=== PATIENT | female | born 1955 | race Two or more races ===

== ENCOUNTER 2025-03-26 08:09 | Inpatient (IN) | payer MEDICARE, SELFPAY ==
[2025-03-22 21:53] VITALS: BP 121/64
[2025-03-22 22:47] VITALS: BMI 22.8
[2025-03-22 23:00] VITALS: BP 123/69
[2025-03-22 23:12] LABS: Hematocrit 32.1 % (37.0-47.0); Hemoglobin 10.7 g/dL (12.0-16.0); Mean Corp Hgb Conc. 33.3 g/dL (33.0-37.0); Mean Corpuscular Volume 77.0 fL (81.0-99.0); Nucleated Red Blood Cells % 0 %; Platelet Count 170 10^3/uL (130-400); Red Cell Dist. Width 14.3 % (11.5-14.5)
[2025-03-22 23:25] LABS: ALT (SGPT) 13 U/L (0-35); AST (SGOT) 35 U/L (14-36); Albumin 4.1 g/dl (3.5-5.0); Alkaline Phosphatase 103 U/L (38-126); Blood Urea Nitrogen 15 mg/dl (7-17); Calcium 8.6 mg/dl (8.4-10.2); Carbon Dioxide 25 mmol/L (22-30); Chloride 93 mmol/L (98-107); Estimated Creatinine Clearance 64 ml/min; Glucose 123 mg/dl (70-99); Potassium 4.1 mmol/L (3.5-5.1); Sodium 123 mmol/L (135-145); Total Protein 7.6 g/dl (6.3-8.2); eGFR > 60.00
[2025-03-23] VITALS (11 sets, daily range): BP systolic 120–166; BP diastolic 52–89; BMI 25.2
--- NOTE | 2025-03-23 00:01 | ED.GENMED ---
History of Present Illness
General
Chief Complaint: Abdominal Pain
Source: patient and family
Exam Limitations: none
Time Seen by Provider: 03/22/25 23:42
Nursing documentation reviewed up to this point in time: agreed with
History of Present Illness
History of Present Illness:
69-year-old female history of metastatic cholangiocarcinoma followed [facility] had been on various oral immunotherapies-presents with abdominal pain, onset a few days ago mid abdomen into her back and shoulder nausea without
vomiting no fever or chills,
Week or so ago she saw her medical oncologist Dr. Medellin, had a CAT scan that showed no new lesions per her son who is physician but some progression in size of the lesions, scheduled to start IV chemotherapy next week
Tobacco no alcohol, no prior abdominal surgeries
Apparently she developed type 1 diabetes as a side effect of one of her immunotherapies, additionally patient may require steroids when she gets IV contrast due to nausea afterward
Phy Exam
Physical Exam
Physical Exam:
Physical Exam
General: 69-year-old female mild distress not
Neck: No jaundice
Heart: s1/s2 regular rate and rhythm, no murmur. equal radial pulses.
Lungs: no acute respiratory distress. clear bilaterally
Abdomen: Tender in the epigastric
Neuro: alert and oriented. no focal neurological deficits
Skin: no rash
Psychiatric: well kept. interactive and cooperative
Extremities: no edema
Course
Orders/Labs/Results
Orders:
Orders
03/22/25 23:01
Complete Blood Count/With Diff Urgent
Comprehensive Metabolic Panel Urgent
Lipase Urgent
Comment: ADD ON
03/22/25 23:43
Add On- LAB Urgent
Tests Added?: lipase
03/22/25 23:53
Troponin I Urgent
HYDROmorphone [Dilaudid] 0.5 mg IV NOW STA
Ondansetron Injectable [Zofran] 4 mg IV NOW STA
Pantoprazole [Protonix IV] 40 mg IV NOW STA
03/22/25 23:55
Dexamethasone Sod Phosphate [Decadron] 10 mg IV NOW STA
03/23/25 00:03
CT Abd/pelvis W Iv Cont Urgent
Reason For Exam: pain cholangriocarcionoma
03/23/25 00:18
Diphenhydramine [Benadryl] 25 mg IV NOW STA
03/23/25 00:35
Electrocardiogram (*1) Urgent
Reason for Study: Chest Pain
EKG- Treatment ONCE
Abnormal Lab Results
03/22/25
23:01
WBC 14.4 H 10^3/uL
(4.8-10.8)
RBC 4.17 L 10^6/uL
(4.20-5.40)
Hgb 10.7 L g/dL
(12.0-16.0)
Hct 32.1 L %
(37.0-47.0)
MCV 77.0 L fL
(81.0-99.0)
MCH 25.7 L pg
(27.0-31.0)
Abs Immat Gran (auto) 0.1 H 10^3/uL
(0-0.05)
Absolute Neuts (auto) 11.7 H 10^3/uL
(1.4-6.5)
Absolute Monos (auto) 1.2 H 10^3/uL
(0.1-0.6)
Immature Gran % 0.6 H %
(0-0.5)
Neutrophils % 81.3 H %
(42.2-75.2)
Lymphocytes % 8.7 L %
(20.5-51.1)
Sodium 123 L mmol/L
(135-145)
Chloride 93 L mmol/L
(98-107)
Glucose 123 H mg/dl
(70-99)
Lipase 21 L U/L
(23-300)
03/22/25 23:01
03/22/25 23:01
Vital Signs
Initial and Last Documented VS:
Initial Vital Signs
Temp Pulse Resp BP Pulse Ox
97.7 F 78 18 121/64 100
03/22/25 21:53 03/22/25 21:53 03/22/25 21:53 03/22/25 21:53 03/22/25 21:53
Last Documented Vital Signs
Temp Pulse Resp BP Pulse Ox
97.7 F 78 18 152/71 99
03/22/25 21:53 03/22/25 21:53 03/22/25 21:53 03/23/25 02:27 03/23/25 02:45
*Radiology
Radiology exam reviewed: radiology read reviewed
*Pulse Oximetry
SaO2: 100
Oxygen Mode of Delivery: Room air
Patient hypoxic: no
*EKG
Interpreted by ED Provider?: Yes
Interpretation: normal
Comparison EKG: no comparison EKG present
Heart Rate: 78
Rate: normal
Rhythm: sinus
Ischemia: non-specific ST changes
*[place] Interpretation
Rate: normal
Interpretation: normal
Heart Rate: 78
Rhythm: sinus
*Critical Care Note
Total Time (30-74mins, 75-104mins- exclusive of procedures): Not Applicable
Update Note
Update Note:
Update CT reviewed with the vision radiology, sounds like what was described to me, although no old images here to review, call placed to oncology at [facility], will update family
Discussed with patient and son who is a physician they prefer to stay here at [place] as opposed to going home as opposed to being transferred reviewed with oncology at [facility] they are in agreement
ED Attending Note
-
Portions of this chart may have been created with voice recognition software.� Occasional wrong word or��sound alike� substitutions may have occurred due to the inherent limitations of voice recognition software.
Discharge Plan
Departure
Patient Disposition: Admit
Date of Disposition: 03/23/25
Time of Disposition: 03:10
Admit to: Med/Surg
Presentation/result/management discussed w/ accepting MD/DO: Hospitalist
Patient with high blood pressure during this ER visit?: No
Condition: Fair
Discharge Problem:
Intractable pain, Cholangiocarcinoma
Referrals:
Ce Waddell DO [Family Provider, Family Practice]
Interventions
Interventions:
*Risk Screen - Suicide Last Done: 03/22/25 21:53
*General Assessment Last Done: 03/22/25 22:00
*Neglect/Abuse Screening Last Done: 03/22/25 21:53
*ED- Fall Risk Assessment Last Done: 03/22/25 22:00
*ED COVID-19 Vaccine History Last Done: 03/22/25 22:00
*ED Influenza Vaccine History Last Done: 03/22/25 22:00
Discharge Date and Time
Print Language: DIVEHI
[2025-03-23] MEDS: DILAUDID 0.5 MG IV ×4 (00:04→19:43)
[2025-03-23] MEDS: ZOFRAN 4 MG IV (00:05)
[2025-03-23] MEDS: PROTONIX IV 40 MG IV ×3 (00:09→19:34)
[2025-03-23] MEDS: DECADRON 10 MG IV (00:10)
[2025-03-23] MEDS: BENADRYL 25 MG IV (00:22)
[2025-03-23 00:28] LABS: Lipase 21 U/L (23-300)
[2025-03-23 00:52] LABS: Troponin I < 0.012 ng/ml
--- NOTE | 2025-03-23 04:48 | HPS.HSE ---
Family Physician
-
Family Physician: Ce Waddell DO
Chief Complaint
-
Abd Pain, Nausea
History of Present Illness
Patient is a 69y F with PMH significant for metastatic cholangiocarcinoma who presents to ED complaining of abdominal pain and nausea. History obtained from patient and family at the bedside. Patient has history of metastatic
cholangiocarcinaom currently followed at [facility]. She was most recently on futibatinib (last dose Monday) with plans to switch back to intravenous chemotherapy later this week.
Patient states that she has been having increased pain in both shoulders, neck and lower back for the past week or so. She denies any injury or change in physical activity.
Patient was advised to take Motrin and has been taiking 400mg BID for about one week.
In the past few days, she developed epigastric abdominal pain and nausea. This has steadily increased. Patient denies any episodes of emesis. No black or bloody stools.
Patient is on omeprazole daily. She added OTC antacids and Maalox with some improvement in her symptoms.
This evening the discomfort seemed more severe and patient presented to the ED for further evaluation.
Medical History
Past Medical History
Past Medical History: Reports Other
Additional Past Medical History:
Metastatic Cholangiocarcinoma
Hypothyroidism
DM-I
Past Surgical History: Reports Other
Additional Past Surgical History:
Cataracts
Social History
Tobacco: Non-smoker
Alcohol: None
Drug: None
Family History
Family History: Not pertinent
Allergies / Home Medications
Allergies reflects when Allergies were last updated in [facility].
Home Medications with original date entered in [facility]
Allergy/Medication List:
Allergies
Allergy/AdvReac Type Severity Reaction Status Date / Time
garbanzo gonsalez Allergy Hives Verified 03/22/25 22:52
Iodinated Contrast Media Allergy Unknown Verified 03/23/25 00:13
Home Medications
insulin aspart U-100 100 unit/mL (3 mL) subcutaneous pen 12 unit SC AC 03/23/25
insulin glargine 100 unit/mL (3 mL) subcutaneous pen (Lantus Solostar U-100 Insulin) 18 unit SC HS 03/23/25
levothyroxine 25 mcg tablet 25 mcg PO DAILY 03/23/25
omeprazole 40 mg capsule,delayed release 40 mg PO DAILY 03/23/25
Review of Systems
-
History Source: Patient and Family
A 12 point ROS was completed and negative except as noted: Yes
Constitutional: Reports Fatigue; Denies Fever or Chills
EENT: Denies Sore Throat
Respiratory: Denies Cough, Hemoptysis or Trouble Breathing
Cardiac: Reports Chest Pain; Denies Palpitations
Abdomen/GI: Reports Abdominal Pain and Nausea; Denies Vomiting, Diarrhea, Constipated, Bloody Stools or Black Stools
: Denies Dysuria, Frequency or Flank Pain
Musculoskeletal: Reports Muscle Pain (shoulders, neck, low back.)
Neurological: Denies Dizzy or Headache
Psych: Denies Depression or Anxiety
Physical Exam
Vital Signs
Vital Signs
Temp Pulse Resp BP Pulse Ox
97.7 F 77 16 130/70 98
03/22/25 21:53 03/23/25 04:42 03/23/25 04:42 03/23/25 04:00 03/23/25 04:30
Physical Exam
General: Other (69y F in no acute distress.)
HEENT: Other (Dry MM. Neck supple.)
Respiratory: Clear; No Wheezes, Rales or Rhonchi
Cardiac: S1/S2 and Regular Rhythm; No Murmur
GI: Soft, Non Distended, Normal Bowel Sounds and Other (Mild tenderness in RUQ / epigastric region. No rebound / guarding.)
Musculoskeletal: No Clubbing, No Cyanosis and No Edema
Neuro: AO x 3
Laboratory Results
-
03/22/25 23:
03/22/25 23:
Laboratory Results
Total Bilirubin 0.5 mg/dl (0.2-1.3) 03/22/25 23:
AST 35 U/L (14-36) 03/22/25 23:
ALT 13 U/L (0-35) 03/22/25 23:
Alkaline Phosphatase 103 U/L (38-126) 03/22/25 23:
Troponin I < 0.012 ng/ml 03/23/25 00:15
Lipase 21 U/L (23-300) L 03/22/25 23:
Impression/Plan
-
A/P: Patient is a 69y F with PMH significant for metastatic cholangiocarcinoma who presents to ED complaining of abdominal pain and nausea.
Gastritis / Esophagitis
- Observe overnight for further evaluation and treatment.
- Epigastric / GI symptoms started after NSAID use for about one week.
- Continue acid suppression and increase to BID.
- Supportive care with antiemetics, pain control, etc.
- Follow for clinical improvement.
Back Pain / Shoulder Pain
- ? Etiology of recent / diffuse pains.
- ? related to malignancy / recently discontinued oral agent / etc.
- Tylenol ATC +/- tramadol as needed for pain for now.
- Avoid NSAIDs.
- Follow for any new / worsening symptoms.
Metastatic Cholangiocarcinoma
- CT scan done in the ED this evening with similar reading to recent CT done at [facility] (03/14).
- Large L liver lesion including invasion into L hepatic vein and IVC - no change from recent prior.
- Otherwise few R liver metastases and innumerable pulmonary metastases.
- Plan is to begin systemic chemotherapy later this week at [facility].
Anemia of Chronic Disease
- Stable. Hgb is at / near known baseline. Follow for any changes.
DM-I
- Stable. Continue basal : bolus insulin regimen.
- Follow glucose and cover with SSI as needed.
- A1C on 03/14 was 7.6%.
Hypothyroidism
- Stable. Continue T4 replacement.
DVT Prophylaxis: SCDs
Code Status: Full
[2025-03-23 06:14] LABS: Hematocrit 35.6 % (37.0-47.0); Hemoglobin 11.9 g/dL (12.0-16.0); Mean Corp Hgb Conc. 33.4 g/dL (33.0-37.0); Mean Corpuscular Volume 78.6 fL (81.0-99.0); Platelet Count 218 10^3/uL (130-400); Red Cell Dist. Width 14.3 % (11.5-14.5)
--- NOTE | 2025-03-23 06:14 | PTCARENOTE ---
05:40 pt rec'vd from ER, son at the bedside. Pt c/o tenderness R LAQ down through lower pelvic area, declining pain medication. VS stable, pt and son oriented to unit and care plan reviewed.
[2025-03-23 06:30] LABS: ALT (SGPT) 17 U/L (0-35); AST (SGOT) 61 U/L (14-36); Albumin 4.3 g/dl (3.5-5.0); Alkaline Phosphatase 120 U/L (38-126); Blood Urea Nitrogen 14 mg/dl (7-17); Calcium 8.8 mg/dl (8.4-10.2); Carbon Dioxide 25 mmol/L (22-30); Chloride 95 mmol/L (98-107); Estimated Creatinine Clearance 55 ml/min; Glucose 180 mg/dl (70-99); Potassium 5.0 mmol/L (3.5-5.1); Sodium 126 mmol/L (135-145); Total Protein 8.1 g/dl (6.3-8.2); eGFR > 60.00
[2025-03-23] MEDS: SYNTHROID 25 MCG PO (06:32)
[2025-03-23 07:54] LABS: Glucose - Point of Care 267 mg/dl (70-99)
[2025-03-23] MEDS: COMPAZINE 5 MG IV ×2 (08:17→14:17)
[2025-03-23] MEDS: NSS (PRESERVATIVE FREE) 10 ML IV ×2 (08:31→19:34)
[2025-03-23] MEDS: NOVOLOG FLEXPEN-MODERATE RESISTANCE 5 UNITS SC ×2 (09:45→17:16)
[2025-03-23] MEDS: TYLENOL PO (09:45)
[2025-03-23] MEDS: NSS 1000 IV (09:46)
--- NOTE | 2025-03-23 11:21 | CM ---
Met with patient and her son at bedside
LAZARO form explained; form signed @ [id number]
Pharmacy verified: [facility] @ [address]
Lives w/ ; multilevel home; half bath 1st floor; 2nd floor bed and bath w/shower stall
PLOF: was independent with ambulation, stairs, and ADL; not currently driving; retired
DME: Dexcom continuous glucose monitor
NO SNF or Home Health utilization history
will transport home
Plan: anticipate discharge to home when stable; case management will monitor for needs
--- NOTE | 2025-03-23 11:24 | CON.GI ---
Consultation
-
Date/Time Consultation Requested: 03/23/25 11:17am
Date/Time Consultation Performed: 03/23/25 11:24am
Requesting Provider: Wilfred Kline
Performing Provider: Joseph Culp
Reason for Consultation: Abd pain, hx metastatic cholangiocarcinoma
Medical History
Chief Complaint / HPI
Chief Complaint: Abd pain, hx metastatic cholangiocarcinoma
History of Present Illness:
69yo female presents with abd pain. She has been having back and neck pain for last 10 days. She started taking ibuprofen 400mg BID. This she began with epigastric pain worse after eating. Her son who is MD told her to increase
omeprazole to BID and try mylanta. She continued to have pain and became worse, and also lower in her abdomen, so he directed her to ER. She also had loose/watery stool yesterday, nonbloody. She has hx metastatic cholangiocarcinoma dx'd 4 years
ago. Initially treated with gemcitabine/cisplatinin which controlled disease in liver but she had progression in her LN so she was switched to various clinical trials using immunotherapy, FGFR inhibitors. She was on steroids for pneumonitis during
immunorx but not in the last year. She is currently on futibatinib (FGFR inhibitor) for the last year but recent CT 03/14 at [facility] showed progression in her liver lesion so she is going to be switched back to gemcitabine cisplatinin. She received
prednisone 40mg for her recent CT due to reaction to the dye. She has been on omeprazole daily for the last year while on her various treatments to protect against GI side effects. No prior EGD. She was born in [place].
Past Medical History
Past Medical History: Hypothyroidism, IDDM and Other (Metastatic cholangiocarcinoma)
Past Surgical History: Other (cataract)
Social History
Tobacco: Non-Smoker
Alcohol: None
Family History
Family History: Reviewed & Not Pertinent
Allergies / Home Medications
Allergy/AdvReac Type Severity Reaction Status Date / Time
garbanzo gonsalez Allergy Hives Verified 03/22/25 22:52
Iodinated Contrast Media Allergy Unknown Verified 03/23/25 00:13
�Medication �Instructions �Recorded
insulin aspart U-100 100 unit/mL 12 unit SC AC 03/23/25
(3 mL) subcutaneous pen
insulin glargine 100 unit/mL (3 18 unit SC HS 03/23/25
mL) subcutaneous pen (Lantus
Solostar U-100 Insulin)
levothyroxine 25 mcg tablet 25 mcg PO DAILY 03/23/25
omeprazole 40 mg capsule,delayed 40 mg PO DAILY 03/23/25
release
Review of Systems
-
All other systems: A 12 pt ROS was Negative except as stated above in HPI
Vital Signs
Temp Pulse Resp BP Pulse Ox
98.1 F 74 16 136/63 99
03/23/25 07:00 03/23/25 07:00 03/23/25 07:00 03/23/25 07:00 03/23/25 07:00
Physical Exam
Exam
General: No Apparent Distress
HEENT: Normocephalic and Atraumatic
Respiratory: Non Labored Respirations
GI: Soft, Non Tender and Non Distended
Skin: Warm and Dry
Results
WBC 13.9 10^3/uL (4.8-10.8) H 03/23/25 05:50
Hgb 11.9 g/dL (12.0-16.0) L 03/23/25 05:50
Hct 35.6 % (37.0-47.0) L 03/23/25 05:50
MCV 78.6 fL (81.0-99.0) L 03/23/25 05:50
Plt Count 218 10^3/uL (130-400) D 03/23/25 05:50
Absolute Neuts (auto) 11.7 10^3/uL (1.4-6.5) H 03/22/25 23:01
Sodium 126 mmol/L (135-145) L 03/23/25 05:50
Potassium 5.0 mmol/L (3.5-5.1) 03/23/25 05:50
Chloride 95 mmol/L (98-107) L 03/23/25 05:50
Carbon Dioxide 25 mmol/L (22-30) 03/23/25 05:50
BUN 14 mg/dl (7-17) 03/23/25 05:50
Creatinine 0.7 mg/dL (0.6-1.0) 03/23/25 05:50
Calcium 8.8 mg/dl (8.4-10.2) 03/23/25 05:50
Total Bilirubin 0.6 mg/dl (0.2-1.3) 03/23/25 05:50
AST 61 U/L (14-36) H 03/23/25 05:50
ALT 17 U/L (0-35) 03/23/25 05:50
Alkaline Phosphatase 120 U/L (38-126) 03/23/25 05:50
Lipase 21 U/L (23-300) L 03/22/25 23:01
Diagnostic Image Results:
Prior GI Procedures:
EGD:
Colonoscopy:
Assessment / Plan
-
Summary: 69yo female hx metastatic cholangioCA dx'd 4 yrs ago presents with epigastric pain for last 4 days migrating to lower abd pain and loose stools day prior to admission. She was taking ibuprofen 400mg BID for back pain for last 10 days.
Currently on futibatinib for cholangiocA but recent CT 03/14 at [facility] showed progression of liver involvement so she is being switched back to gemcitabine/cisplatnin. She rec'd prednisone 40mg for the CT scan due to reaction to IV dye. CT this
admission prelim shows no change from recent CT. LFTs, lipase normal. She takes prilosec daily for last year. Her son (who is MD) asked her to increase to BID and try mylanta
Impression:
Epig pain/lower abd pain
Recent NSAIDs and 1 dose prednisone 40mg
Metastatic cholangiocarcinoma on futibatinib, planning on switching to gemcitabine/cisplatnin. Oncologist Dr Medellin at [facility]
Recommendations:
Continue IV protonix BID for probable NSAID induced ulcer/gastritis in addition to single dose steroids
Add carafate
Check stool c diff given recent loose stool
Await final read on CT
If no improvement, consider EGD next
-
-
Thank you for consultation and allowing me to participate in the patient's care. Please call the associate application developer GI physician during the after hours with any questions or concerns.
[2025-03-23 11:56] LABS: Glucose - Point of Care 357 mg/dl (70-99)
[2025-03-23] MEDS: MIRALAX 17 GRAMS PO (12:01)
[2025-03-23] MEDS: COLACE 100 MG PO ×2 (12:01→19:34)
[2025-03-23] MEDS: NOVOLOG FLEXPEN 10 UNITS SC ×2 (12:01→17:16)
[2025-03-23] MEDS: NOVOLOG FLEXPEN-MODERATE RESISTANCE 9 UNITS SC (12:02)
--- NOTE | 2025-03-23 12:07 | W.PN.UPDATE ---
Update Note
Progress Note Update
spoke with and son at bedside.
provide an update to the best of my knowledge and answered all questions to the best of my knowledge
will consult gi
await for official ct read
start miralax and colace
previous reaction to senna
personally reviewed ct
-bladder distended and full of urine
-stool through out the colon
-bowel reg started
chucky - Don Phipps MD, [employer]
[phone]
[2025-03-23] MEDS: ULTRAM 25 MG PO (15:05)
[2025-03-23] MEDS: TYLENOL 975 MG PO ×2 (15:05→22:23)
[2025-03-23 16:37] LABS: Glucose - Point of Care 264 mg/dl (70-99)
[2025-03-23] MEDS: CARAFATE 1 GRAM PO ×2 (17:15→22:23)
[2025-03-23 21:50] LABS: Glucose - Point of Care 186 mg/dl (70-99)
[2025-03-23] MEDS: SENOKOT 17.2 MG PO (22:23)
[2025-03-23] MEDS: LANTUS 0.18 UNITS SC (22:24)
[2025-03-24] MEDS: NSS IV (00:11)
[2025-03-24] MEDS: DILAUDID 0.5 MG IV ×2 (02:05→20:54)
[2025-03-24] MEDS: NSS 1000 IV ×2 (02:40→18:33)
[2025-03-24] MEDS: SYNTHROID 25 MCG PO (05:56)
[2025-03-24 06:00] VITALS: BMI 25.2
[2025-03-24 06:32] LABS: Hematocrit 32.9 % (37.0-47.0); Hemoglobin 10.8 g/dL (12.0-16.0); Mean Corp Hgb Conc. 32.8 g/dL (33.0-37.0); Mean Corpuscular Volume 80.4 fL (81.0-99.0); Platelet Count 185 10^3/uL (130-400); Red Cell Dist. Width 14.6 % (11.5-14.5)
[2025-03-24 07:00] LABS: Blood Urea Nitrogen 16 mg/dl (7-17); Calcium 8.0 mg/dl (8.4-10.2); Carbon Dioxide 26 mmol/L (22-30); Chloride 94 mmol/L (98-107); Estimated Creatinine Clearance 55 ml/min; Glucose 257 mg/dl (70-99); Potassium 4.8 mmol/L (3.5-5.1); Sodium 125 mmol/L (135-145); eGFR > 60.00
--- NOTE | 2025-03-24 08:05 | W.PN.GI.CBS2 ---
Addendum entered and electronically signed by Jewel Fishman MD 03/24/25 15:55:
I saw and examined the patient.
The VISUAL SUPERVISOR or PA's note was reviewed and I agree with the note.
Comment: 69-year-old female past medical history of metastatic cholangiocarcinoma presenting with back pain, neck pain, abdominal pain. Worsening pain since this AM when Mireya initially saw her. She was taking ibuprofen. Most likely I suspect this
is related to her metastatic cancer causing her pain but if her pain persist with no clear etiology, may consider upper endoscopy for further evaluation for an ulcer in setting of NSAIDS will make NPO after midnight . There was questionable of
loose stool when she first was admitted but when I discussed with her she seems to have more constipation. She has 1 loose stool but this is in the setting of being on MiraLAX and Colace. CT scan also showed possible ileus which could be
explanation for her pain. I discussed with hospitalist. He will continue to manage her pain regimen.
Original Note:
Today's Communication / Plan
-
Etiology of pain related to recent NSAID/steroid use, constipation, possible ileus, metastatic process vs other
Pt feeling better from abdominal pain and diarrhea standpoint but still with some shoulder and back pain
cont diet 1800 ADA diet -- may bring food from home
cont PPI BID and carafate QID
cont bowel regiment with Miralax daily, colace BID, and senna HS
c-diff pending to be stent
CT as noted
hbg stable at 10.8
cont pain management per hospitalist team
If recurrent pain consider EGD next
cont to correct Na with possible ileus noted on imaging
family updated at bedside
Assessment / Plan
-
Summary: 69yo female hx metastatic cholangioCA dx'd 4 yrs ago presents with epigastric pain for last 4 days migrating to lower abd pain and loose stools day prior to admission. She was taking ibuprofen 400mg BID for back pain for last 10 days.
Currently on futibatinib for cholangiocA but recent CT 03/14 at [facility] showed progression of liver involvement so she is being switched back to gemcitabine/cisplatnin. She rec'd prednisone 40mg for the CT scan due to reaction to IV dye. CT this
admission prelim shows no change from recent CT. LFTs, lipase normal. She takes prilosec daily for last year. Her son (who is MD) asked her to increase to BID and try mylanta
03/23/25 CT Abd/pelvis W Iv Cont
1. LARGE 4.5 cm INTRAHEPATIC BILE DUCT CANCER in the left lobe of the liver invading the inferior vena cava and occluding the left portal vein.
2. Severe atrophy of the left lobe of the liver with intrahepatic bile duct obstruction.
3. Small metastases in the right lobe of the liver.
4. SEVERE METASTATIC LYMPHADENOPATHY in the GASTROHEPATIC LIGAMENT.
5. SEVERE METASTATIC RETROPERITONEAL LYMPHADENOPATHY.
6. MULTIFOCAL PULMONARY METASTATIC DISEASE.
7. Moderate colonic distention most suggestive of an adynamic ileus.
8. Minimal ascites.
Impression:
Epig pain
loose stools with hx constipation
lower abd pain
back/neck/shoulder pain
Recent NSAIDs and 1 dose prednisone 40mg
possible ileus per CT
leukocytosis
hyponatemia
Metastatic cholangiocarcinoma on futibatinib, planning on switching to gemcitabine/cisplatnin. Oncologist Dr Medellin at [facility]
Recommendations:
Etiology of pain related to recent NSAID/steroids use, constipation, possible ileus, metastatic process vs other
Pt feeling better from abdominal pain and diarrhea standpoint but still with some shoulder and back pain
cont diet 1800 ADA diet -- may bring food from home
cont PPI BID and carafate QID
cont bowel regiment with Miralax daily, colace BID, and senna HS
c-diff pending to be stent
CT as noted
hbg stable 10.8
cont pain management per hospitalist team
If recurrent pain consider EGD next
cont to correct Na with possible ileus noted on imaging
family updated at bedside
Subjective
Subjective
Date of Service: March 24, 2025
pt feeling better from GI standpoint with abdominal pain and loose stools but still with some back pain and left shoulder pain not controlled with tylenol and Tramadol
Objective
Data Reviewed
Laboratory Data:
Laboratory Results
03/24/25 06:22
03/24/25 06:22
Laboratory Results
Total Bilirubin 0.6 mg/dl (0.2-1.3) 03/23/25 05:50
AST 61 U/L (14-36) H 03/23/25 05:50
ALT 17 U/L (0-35) 03/23/25 05:50
Alkaline Phosphatase 120 U/L (38-126) 03/23/25 05:50
Lipase 21 U/L (23-300) L 03/22/25 23:01
Vital Signs and I&O:
Vital Signs
Temp Pulse Resp BP Pulse Ox
97.7 F 72 16 120/52 95
03/23/25 23:24 03/23/25 23:24 03/23/25 23:24 03/23/25 23:24 03/23/25 23:24
I&O
03/23/25 03/24/25 03/25/25
06:59 06:59 06:59
Intake Total 1680 / 1680
Output Total 225 / 225
Balance 1455 / 1455
Physical Exam
Physical Exam
HEENT: Anicteric
Cardiology: Normal Sinus Rhythm
Pulmonary: Clear
GI: Soft, Non Distended and Non Tender
Neuro: Non Focal
[2025-03-24 08:10] VITALS: BP 128/64
[2025-03-24 08:11] LABS: Glucose - Point of Care 273 mg/dl (70-99)
[2025-03-24] MEDS: CARAFATE 1 GRAM PO ×4 (08:19→20:48)
[2025-03-24] MEDS: MIRALAX 17 GRAMS PO (08:20)
[2025-03-24] MEDS: PROTONIX IV 40 MG IV ×2 (08:20→20:48)
[2025-03-24] MEDS: COLACE 100 MG PO ×2 (08:20→20:48)
[2025-03-24] MEDS: NOVOLOG FLEXPEN 10 UNITS SC ×3 (08:21→18:31)
[2025-03-24] MEDS: TYLENOL 975 MG PO (08:21)
[2025-03-24] MEDS: NSS (PRESERVATIVE FREE) 10 ML IV ×2 (08:21→20:48)
[2025-03-24] MEDS: NOVOLOG FLEXPEN-MODERATE RESISTANCE 5 UNITS SC (08:22)
[2025-03-24] MEDS: ULTRAM 25 MG PO ×2 (10:02→22:16)
[2025-03-24 11:50] LABS: Glucose - Point of Care 213 mg/dl (70-99)
[2025-03-24] MEDS: NOVOLOG FLEXPEN-MODERATE RESISTANCE 3 UNITS SC ×2 (12:14→18:31)
[2025-03-24] MEDS: PERCOCET 5/325 1 TABLET PO ×2 (12:27→16:55)
--- NOTE | 2025-03-24 12:57 | W.PN.HOSP.TC ---
Today's Communication/Plan
-
Assessment / Plan
Assessment / Plan
NAD
Scleral Anicteric
MMM
No JVD
Right anterior chest wall port noted
CTABL
RRR, S1/S2
Soft, NT, ND, BS+
Warm, Dry
Left pin point tenderness over scapula lateral edge
AAOx3
Abdominal pain resolved
Constipation with adynamic ileus
Hyponatremia
Shoulder pain - left sided, likely MSK
Cholangiocarincoma
Hypothyrosidism
Type1 DM
PPI IV BID
Miralax, colace, senna
Repeat bmp in the AM
IVF with NS at a rate of 70
Left shoulder xray
Analgesics
Start percocet
Conitnue levothyroxine
SSI
Long acting insuline
Accuchecks
[id number]
CCDiet
Anticipated Discharge: 24 - 48 hours
Subjective/Interval History
-
Date of Service: March 24, 2025
seen and examined. no new complaints. no acute ovenrigh events
abd pain improved
shoulder pain left sided
Objective Data
-
Labs:
Laboratory Results
03/24/25
06:22
WBC 14.7 H
Hgb 10.8 L
Hct 32.9 L
Plt Count 185
Sodium 125 L
Potassium 4.8
Chloride 94 L
Carbon Dioxide 26
BUN 16
Creatinine 0.7
Glucose 257 H
Calcium 8.0 L
Vital Signs:
Vital Signs
Temp Pulse Resp BP Pulse Ox
98.0 F 82 16 128/64 98
03/24/25 08:10 03/24/25 08:10 03/24/25 08:10 03/24/25 08:10 03/24/25 08:10
I&O
03/23/25 03/24/25 03/25/25
06:59 06:59 06:59
Intake Total 1680 / 1680
Output Total 225 / 225
Balance 1455 / 1455
[2025-03-24] MEDS: NON-FORMULARY ITEM 1 % LEFT EYE ×2 (14:41→20:49)
[2025-03-24 15:12] VITALS: BP 120/59
[2025-03-24] MEDS: TYLENOL PO (16:56)
[2025-03-24 17:39] LABS: Glucose - Point of Care 202 mg/dl (70-99)
[2025-03-24] MEDS: SENOKOT 17.2 MG PO (22:18)
[2025-03-24] MEDS: LANTUS 0.18 UNITS SC (22:20)
[2025-03-24 22:44] LABS: Glucose - Point of Care 197 mg/dl (70-99)
[2025-03-24 23:30] VITALS: BP 140/70
[2025-03-25] MEDS: TYLENOL PO ×2 (00:23→07:57)
[2025-03-25] MEDS: SYNTHROID 25 MCG PO (05:12)
[2025-03-25] MEDS: DILAUDID 0.5 MG IV (05:13)
[2025-03-25 06:00] VITALS: BMI 26.3
[2025-03-25 06:11] LABS: Hematocrit 31.2 % (37.0-47.0); Hemoglobin 10.1 g/dL (12.0-16.0); Mean Corp Hgb Conc. 32.4 g/dL (33.0-37.0); Mean Corpuscular Volume 79.6 fL (81.0-99.0); Platelet Count 183 10^3/uL (130-400); Red Cell Dist. Width 14.8 % (11.5-14.5)
[2025-03-25 06:33] LABS: Blood Urea Nitrogen 12 mg/dl (7-17); Calcium 7.7 mg/dl (8.4-10.2); Carbon Dioxide 23 mmol/L (22-30); Chloride 95 mmol/L (98-107); Estimated Creatinine Clearance 64 ml/min; Glucose 234 mg/dl (70-99); Potassium 4.3 mmol/L (3.5-5.1); Sodium 123 mmol/L (135-145); eGFR > 60.00
--- NOTE | 2025-03-25 07:36 | W.PN.GI.CBS2 ---
Addendum entered and electronically signed by Jewel Fishman MD 03/25/25 15:08:
I saw and examined the patient.
The REMOTE BROADCAST TECHNICIAN or PA's note was reviewed and I agree with the note.
Comment: 69-year-old female with metastatic cholangiocarcinoma presenting with abdominal pain, back pain, constipation. Complaining of ongoing abdominal pain but no longer epigastric but more so lower abdominal pain. Due to her hyponatremia and
the presentation of her abdominal pain, the decision was made to hold off on the upper endoscopy. Less likely this represents an ulcer. She could be constipated which was seen on imaging. I will stop her Carafate as that can be constipating. We
will continue her PPI in case there is any sort of peptic ulcer disease. We will increase her MiraLAX to twice a day. I discussed with hospitalist they will manage her pain and reach out to her oncologist. I discussed with her at bedside.
All questions answered.
Original Note:
Today's Communication / Plan
-
Etiology of pain related to recent NSAID/steroids use, constipation, possible ileus, metastatic process vs other
still with some lower abdominal pain today
Na drop to 123
low Na may lead to ileus noted on imaging but pt continued to tolerate diet
hold EGD today as epigastric pain better and Na drop
ok to resume diet
cont PPI BID and carafate QID
cont bowel regiment with Miralax daily, colace BID, and senna HS
c-diff neg
CT as noted
hbg stable 10.1
cont pain management per hospitalist team -- some transition to PO dosing but needed IV dosing last PM
family updated at bedside
Assessment / Plan
-
Summary: 69yo female hx metastatic cholangioCA dx'd 4 yrs ago presents with epigastric pain for last 4 days migrating to lower abd pain and loose stools day prior to admission. She was taking ibuprofen 400mg BID for back pain for last 10 days.
Currently on futibatinib for cholangiocA but recent CT 03/14 at [facility] showed progression of liver involvement so she is being switched back to gemcitabine/cisplatnin. She rec'd prednisone 40mg for the CT scan due to reaction to IV dye. CT this
admission prelim shows no change from recent CT. LFTs, lipase normal. She takes prilosec daily for last year. Her son (who is MD) asked her to increase to BID and try mylanta
03/23/25 CT Abd/pelvis W Iv Cont
1. LARGE 4.5 cm INTRAHEPATIC BILE DUCT CANCER in the left lobe of the liver invading the inferior vena cava and occluding the left portal vein.
2. Severe atrophy of the left lobe of the liver with intrahepatic bile duct obstruction.
3. Small metastases in the right lobe of the liver.
4. SEVERE METASTATIC LYMPHADENOPATHY in the GASTROHEPATIC LIGAMENT.
5. SEVERE METASTATIC RETROPERITONEAL LYMPHADENOPATHY.
6. MULTIFOCAL PULMONARY METASTATIC DISEASE.
7. Moderate colonic distention most suggestive of an adynamic ileus.
8. Minimal ascites.
Impression:
Epig pain then lower abdominal pain
loose stools with hx constipation
back/neck/shoulder pain
Recent NSAIDs and 1 dose prednisone 40mg
possible ileus per CT
leukocytosis
hyponatremia
Metastatic cholangiocarcinoma on futibatinib, planning on switching to gemcitabine/cisplatnin. Oncologist Dr Medellin at [facility]
Recommendations:
Etiology of pain related to recent NSAID/steroids use, constipation, possible ileus, metastatic process vs other
still with some lower abdominal pain today
Na drop to 123
low Na may lead to ileus noted on imaging but pt continued to tolerate diet
hold EGD today as epigastric pain better and Na drop
ok to resume diet
cont PPI BID and carafate QID
cont bowel regiment with Miralax daily, colace BID, and senna HS
c-diff neg
CT as noted
hbg stable 10.1
cont pain management per hospitalist team -- some transition to PO dosing but needed IV dosing last PM
family updated at bedside
Subjective
Subjective
Date of Service: March 25, 2025
03/24 loose brown stool on diabetic diet, no upper abdominal pain but some lower pain-- she did require breakthough IV pain meds last PM
Objective
Data Reviewed
Laboratory Data:
Laboratory Results
03/25/25 05:32
03/25/25 05:32
Laboratory Results
Total Bilirubin 0.6 mg/dl (0.2-1.3) 03/23/25 05:50
AST 61 U/L (14-36) H 03/23/25 05:50
ALT 17 U/L (0-35) 03/23/25 05:50
Alkaline Phosphatase 120 U/L (38-126) 03/23/25 05:50
Lipase 21 U/L (23-300) L 03/22/25 23:01
Vital Signs and I&O:
Vital Signs
Temp Pulse Resp BP Pulse Ox
98.1 F 76 16 140/70 97
03/24/25 23:30 03/24/25 23:30 03/24/25 23:30 03/24/25 23:30 03/24/25 23:30
I&O
03/24/25 03/25/25 03/26/25
06:59 06:59 06:59
Intake Total 1680 / 1680 1780 / 1780
Output Total 225 / 225 2480 / 2480
Balance 1455 / 1455 -700 / -700
Physical Exam
Physical Exam
HEENT: Anicteric and Moist mucous membranes
Cardiology: Normal Sinus Rhythm
Pulmonary: Clear
GI: Soft, Non Distended and Non Tender
Extremities: No Edema
Neuro: Non Focal
[2025-03-25] MEDS: NON-FORMULARY ITEM 1 % LEFT EYE ×3 (07:54→21:31)
[2025-03-25] MEDS: PROTONIX IV 40 MG IV ×2 (07:56→20:14)
[2025-03-25] MEDS: MIRALAX 17 GRAMS PO (07:56)
[2025-03-25] MEDS: NSS (PRESERVATIVE FREE) 10 ML IV ×2 (07:56→20:14)
[2025-03-25] MEDS: COLACE 100 MG PO ×2 (07:56→20:13)
[2025-03-25 08:00] LABS: Glucose - Point of Care 257 mg/dl (70-99)
[2025-03-25] MEDS: NOVOLOG FLEXPEN-MODERATE RESISTANCE 15 UNITS SC (08:00)
[2025-03-25] MEDS: NOVOLOG FLEXPEN 10 UNITS SC ×3 (08:00→18:16)
[2025-03-25] MEDS: CARAFATE 1 GRAM PO ×2 (08:01→12:35)
[2025-03-25 08:07] VITALS: BP 152/74
[2025-03-25] MEDS: NSS 1000 IV (08:11)
[2025-03-25 09:02] LABS: Cortisol, Random 29.9 ug/dl
[2025-03-25 11:33] LABS: Glucose - Point of Care 206 mg/dl (70-99)
[2025-03-25] MEDS: NOVOLOG FLEXPEN-MODERATE RESISTANCE 13 UNITS SC (12:32)
--- NOTE | 2025-03-25 12:43 | W.PN.HOSP.TC ---
Today's Communication/Plan
-
Assessment / Plan
Assessment / Plan
NAD
Scleral Anicteric
MMM
No JVD
Right anterior chest wall port noted
CTABL
RRR, S1/S2
Soft, NT, ND, BS+
Warm, Dry
Left pin point tenderness over scapula lateral edge
AAOx3
Abdominal pain resolved
Constipation with adynamic ileus
Hyponatremia
Shoulder pain - left sided, likely MSK
Cholangiocarincoma
Hypothyrosidism
Type1 DM
PPI IV BID
Miralax, colace, senna
Repeat bmp in the AM
IVF with NS at a rate of 70
Left shoulder xray
Analgesics
Start percocet
Conitnue levothyroxine
SSI
Long acting insuline
Accuchecks
[id number]
CCDiet
Anticipated Discharge: 24 - 48 hours
Subjective/Interval History
-
Date of Service: March 25, 2025
seen and examined. needed 2doses of iv analgesics.
Objective Data
-
Labs:
Laboratory Results
03/25/25
05:32
WBC 17.3 H
Hgb 10.1 L
Hct 31.2 L
Plt Count 183
Sodium 123 L
Potassium 4.3
Chloride 95 L
Carbon Dioxide 23
BUN 12
Creatinine 0.5 L
Glucose 234 H
Calcium 7.7 L
Vital Signs:
Vital Signs
Temp Pulse Resp BP Pulse Ox
98.9 F 96 17 152/74 99
03/25/25 08:07 03/25/25 08:07 03/25/25 08:07 03/25/25 08:07 03/25/25 08:07
I&O
03/24/25 03/25/25 03/26/25
06:59 06:59 06:59
Intake Total 1680 / 1680 1780 / 1780
Output Total 225 / 225 2480 / 2480
Balance 1455 / 1455 -700 / -700
--- NOTE | 2025-03-25 13:37 | W.CON.NEPH ---
Consultation
-
Date/Time Consultation Requested: 03/25/25 1230
Date/Time Consultation Performed: 03/25/25 1400
Requesting Provider: Wilfred Lee
Performing Provider: Liseth Crisostomo
Reason for Consultation: Hypoantremia
Medical History
-
Chief Complaint: Abd pain , nausea
History of Present Illness:
69y F with PMH significant for metastatic cholangiocarcinoma for 4.5yrs tried multiple clinical trials but stopped due to SEs follows at [facility] who presents to ED complaining of abdominal pain and nausea on 03/23. She was most recently on
futibatinib for cancer (last week Monday) with plans to switch back to intravenous chemotherapy Gemcitabine and cisplatin since progression noted in liver.
Patient states that she has been having increased pain in both shoulders, neck and lower back for 1 week or so. She was advised to take Motrin and took 400mg BID for about one week which subsequently caused epigastric abdominal pain and nausea,
subsequently she changed to tylenol but Pain was worsening hence presented to ER. SHe was seen by GI and currently on PPI BID, There also concern of constipation and possible ileus. Her sodium on admit was at 123 only improved to 126 with IVF
however down to 123 today hence nephrology consulted. GI plans EGD once sodium improves.
Pt reprots still having significant pain. mild nausea. No vomiting. No CP or sob. no dysuria but volume is less. She reports having allergy to multiple high protein foods with rash so her protein source is limited. Her major protein source is peanut
and yogurt. She reports having low sodium 128-132 in last few months, not on any FR.
Past Medical History
Metastatic Cholangiocarcinoma
Hypothyroidism
DM-I
Past Surgical History: Other (cataracts)
Social History
son is program checker
Tobacco: Non-Smoker
Alcohol: None
Drug: None
Employment: Retired
Family History
Family History: Not Pertinent
Allergies / Home Medications
Allergy/AdvReac Type Severity Reaction Status Date / Time
garbanzo gonsalez Allergy Hives Verified 03/22/25 22:52
Iodinated Contrast Media Allergy Unknown Verified 03/23/25 00:13
�Medication �Instructions �Recorded �Confirmed �Type
insulin aspart U-100 100 unit/mL 12 unit SC AC Diabetes 03/23/25 03/23/25 History
(3 mL) subcutaneous pen
insulin glargine 100 unit/mL (3 18 unit SC HS Diabetes 03/23/25 03/23/25 History
mL) subcutaneous pen (Lantus
Solostar U-100 Insulin)
levothyroxine 25 mcg tablet 25 mcg PO DAILY Thyroid 03/23/25 03/23/25 History
omeprazole 40 mg capsule,delayed 40 mg PO DAILY gerd 03/23/25 03/23/25 History
release
prednisolone-moxifloxacin HCl 1 % LEFT EYE TID 03/24/25 03/24/25 History
Review of Systems
-
All other systems: Negative unless noted
Physical Exam
Vital Signs
Vital Signs
Temp Pulse Resp BP Pulse Ox
98.9 F 96 17 152/74 99
03/25/25 08:07 03/25/25 08:07 03/25/25 08:07 03/25/25 08:07 03/25/25 08:07
Lab Results
WBC 17.3 10^3/uL (4.8-10.8) H 03/25/25 05:32
RBC 3.92 10^6/uL (4.20-5.40) L 03/25/25 05:32
Hgb 10.1 g/dL (12.0-16.0) L 03/25/25 05:32
Hct 31.2 % (37.0-47.0) L 03/25/25 05:32
Plt Count 183 10^3/uL (130-400) 03/25/25 05:32
Sodium 123 mmol/L (135-145) L 03/25/25 05:32
Potassium 4.3 mmol/L (3.5-5.1) 03/25/25 05:32
Chloride 95 mmol/L (98-107) L 03/25/25 05:32
Carbon Dioxide 23 mmol/L (22-30) 03/25/25 05:32
BUN 12 mg/dl (7-17) 03/25/25 05:32
Creatinine 0.5 mg/dL (0.6-1.0) L 03/25/25 05:32
eGFR > 60.00 03/25/25 05:32
Glucose 234 mg/dl (70-99) H 03/25/25 05:32
Calcium 7.7 mg/dl (8.4-10.2) L 03/25/25 05:32
Albumin 4.3 g/dl (3.5-5.0) 03/23/25 05:50
Physical Exam
General: Awake, Alert, Oriented, AOx3, No Distress and Nontoxic
HEENT: EOMI, Hearing Normal and No JVD
Respiratory: Clear, Normal Excursion and Nonlabored Respirations
Cardiac: S1/S2 and Regular Rate/Rhythm
Breast: Deferred by me
Abdomen: Soft, Nontender (in gentel palpation) and Nondistended
Musculoskeletal: No Cyanosis and No Edema
Skin: No Rash
Neuro: Nonfocal/Grossly Intact
Psych: Insight/judgement good and Appropriate
Data Reviewed
-
Labs: Labs Reviewed by me, Discussed with Nurse and Discussed with Patient
Assessment/Plan
-
IMP:
Epig pain then lower abdominal pain -started after NSAID use for about one week.
Back Pain / Shoulder Pain
Metastatic Cholangiocarcinoma-plan systemic therapy at [facility] later this week
- CT scan done in the ED this evening with similar reading to recent CT done at [facility] (03/14).
- Large L liver lesion including invasion into L hepatic vein and IVC - no change from recent prior.
- Otherwise few R liver metastases and innumerable pulmonary metastases.
Anemia of Chronic Disease
recent onset DM-I-in last 6m following immunotherapy
Hypothyroidism
Plan:
A/w abd pian following NSAID course
hyponatremia -ADH mediated with pain and malignancy
U osmo 485, U na 79
sodium decreasing despite IVF
as she tolerating diet will dose samsca and stop IVF
cotn FR
BP stable
U PCR 0.8gm/gm of cr possible from DM
maintains normal renal function
pain control
encourage solute intake as much she can do with known high protein food allergy
[2025-03-25] MEDS: PERCOCET 5/325 2 TABLET PO ×2 (14:03→18:20)
[2025-03-25] MEDS: SAMSCA 7.5 MG PO (15:05)
[2025-03-25 15:25] VITALS: BP 114/68
[2025-03-25 16:25] LABS: Glucose - Point of Care 181 mg/dl (70-99)
[2025-03-25] MEDS: NOVOLOG FLEXPEN-MODERATE RESISTANCE 1 UNITS SC (18:16)
[2025-03-25] MEDS: MIRALAX PO ×2 (20:00→20:15)
[2025-03-25] MEDS: SENOKOT 17.2 MG PO (21:31)
[2025-03-25 21:40] LABS: Glucose - Point of Care 85 mg/dl (70-99)
[2025-03-25 23:09] VITALS: BP 102/53
[2025-03-25] MEDS: LANTUS 0.18 UNITS SC (23:09)
--- NOTE | 2025-03-25 23:16 | PTCARENOTE ---
HS BS 86 via fingerstick. Had been >150. Patient states this happens on occasion. She had an HS(own food). Per her meter recheck 146. Patient refused repeat fingerstick. HS Lantus per order.
[2025-03-26 03:23] VITALS: BMI 26.1
[2025-03-26] MEDS: SYNTHROID 25 MCG PO (05:30)
[2025-03-26] MEDS: PERCOCET 5/325 1 TABLET PO (05:43)
[2025-03-26 06:18] LABS: Hematocrit 32.6 % (37.0-47.0); Hemoglobin 10.5 g/dL (12.0-16.0); Mean Corp Hgb Conc. 32.2 g/dL (33.0-37.0); Mean Corpuscular Volume 79.5 fL (81.0-99.0); Platelet Count 202 10^3/uL (130-400); Red Cell Dist. Width 14.9 % (11.5-14.5)
[2025-03-26 06:44] LABS: Blood Urea Nitrogen 9 mg/dl (7-17); Calcium 8.4 mg/dl (8.4-10.2); Carbon Dioxide 25 mmol/L (22-30); Chloride 102 mmol/L (98-107); Estimated Creatinine Clearance 73 ml/min; Glucose 271 mg/dl (70-99); Potassium 4.5 mmol/L (3.5-5.1); Sodium 130 mmol/L (135-145); eGFR > 60.00
[2025-03-26 07:28] LABS: Glucose - Point of Care 276 mg/dl (70-99)
[2025-03-26 07:29] VITALS: BP 127/76
[2025-03-26] MEDS: NOVOLOG FLEXPEN 10 UNITS SC ×2 (07:56→12:02)
[2025-03-26] MEDS: NOVOLOG FLEXPEN-MODERATE RESISTANCE 5 UNITS SC (07:56)
[2025-03-26] MEDS: MIRALAX 17 GRAMS PO (07:59)
[2025-03-26] MEDS: PROTONIX IV 40 MG IV (07:59)
[2025-03-26] MEDS: NON-FORMULARY ITEM 1 % LEFT EYE (07:59)
[2025-03-26] MEDS: NSS (PRESERVATIVE FREE) 10 ML IV (07:59)
[2025-03-26] MEDS: COLACE 100 MG PO (08:00)
[2025-03-26] MEDS: PERCOCET 5/325 2 TABLET PO (09:23)
--- NOTE | 2025-03-26 11:21 | W.PN.NEPH.PH ---
Today's Communication / Plan
-
Lasix and salt
Assessment/Plan
-
IMP:
Epig pain then lower abdominal pain -started after NSAID use for about one week.
Back Pain / Shoulder Pain
Metastatic Cholangiocarcinoma-plan systemic therapy at [facility] later this week
- CT scan done in the ED this evening with similar reading to recent CT done at [facility] (03/14).
- Large L liver lesion including invasion into L hepatic vein and IVC - no change from recent prior.
- Otherwise few R liver metastases and innumerable pulmonary metastases.
Anemia of Chronic Disease
recent onset DM-I-in last 6m following immunotherapy
Hypothyroidism
Plan:
lasix 10mg dialy
NaCl 500mg daily
BMP monday
ok ofor dc from renal standpoint
-
-
Date of Service: March 26, 2025
CC / HPI / ROS
-
Chief Complaint:
Hyponatremia
History of Present Illness:
Sodium up to 130 with Samsca
BP stable
Pain modestly controlled with narcotics
Review of Systems:
No chest pain or shortness of breath
Labs
-
Labs:
WBC 19.9 10^3/uL (4.8-10.8) H 03/26/25 05:50
RBC 4.10 10^6/uL (4.20-5.40) L 03/26/25 05:50
Hgb 10.5 g/dL (12.0-16.0) L 03/26/25 05:50
Hct 32.6 % (37.0-47.0) L 03/26/25 05:50
Plt Count 202 10^3/uL (130-400) 03/26/25 05:50
Sodium 130 mmol/L (135-145) L 03/26/25 05:50
Potassium 4.5 mmol/L (3.5-5.1) 03/26/25 05:50
Chloride 102 mmol/L (98-107) 03/26/25 05:50
Carbon Dioxide 25 mmol/L (22-30) 03/26/25 05:50
BUN 9 mg/dl (7-17) 03/26/25 05:50
Creatinine 0.6 mg/dL (0.6-1.0) 03/26/25 05:50
eGFR > 60.00 03/26/25 05:50
Glucose 271 mg/dl (70-99) H 03/26/25 05:50
Calcium 8.4 mg/dl (8.4-10.2) 03/26/25 05:50
Albumin 4.3 g/dl (3.5-5.0) 03/23/25 05:50
Physical Exam
-
Vital Signs:
Vital Signs
Temp Pulse Resp BP Pulse Ox
99.0 F 97 18 127/76 98
03/26/25 07:29 03/26/25 07:29 03/26/25 07:29 03/26/25 07:29 03/26/25 07:29
Cardiovascular:: Regular rate and rhythm
Respiratory:: Bilateral: Coarse
Lung Excursion:: Normal
Abdomen:: Nontender and Soft
Bowel Sounds:: Normal
Extremity Edema:: None: Bilateral:
[2025-03-26 11:45] VITALS: BP 124/55
--- NOTE | 2025-03-26 11:47 | W.DCSUMMARY ---
Discharge Summary
Discharge Data
Date of Admission: 03/26/25
Date of Discharge: 03/26/25
-
Pending Results: No
Hospital Course
69y F with PMH significant for metastatic cholangiocarcinoma
Presented with abdominal pain nausea and shoulder and back pain. CT abdomen pelvis demonstrated concerns for adynamic ileus. Was started on IV fluids along with bowel regimen. Evaluated by GI as there was also complaints of upper GI discomfort
and has been recently taking NSAIDs. GI was planning to do an upper endoscopy however due to hyponatremia this was pushed back. Sodium was as low as 123 evaluated by nephrology which recommended Samsca which helped to improve sodium to 130.
Nephrology further recommended to discharge home with lasix 10mg daily and salt tabs with BMP bloodwork on Monday the 31 of March. The back.shoulder pain was treated with iv analgesics and oral analgesics with improvement. Will plan to dc home
with percocet 2tabs [id number] x3days and then will need to continue to follow up with pcp/oncologist for refills.
Should be noted, discussed case with primary oncologist Dr. Eliseo Medellin at [facility] March 26, 2025 via my cell phone at 813 in the morning. Reviewed the case with him including increasing white count (leukocytosis) and pain. Suspect likely
related to cancer that is actively growing. Will likely require outpatient PET scan for the pain. If nontoxic-appearing, afebrile and if cleared for discharge, follow-up up as an outpatient.
CTAP
IMPRESSION:
1. LARGE 4.5 cm INTRAHEPATIC BILE DUCT CANCER in the left lobe of the liver invading the inferior vena cava and occluding the left portal vein.
2. Severe atrophy of the left lobe of the liver with intrahepatic bile duct obstruction.
3. Small metastases in the right lobe of the liver.
4. SEVERE METASTATIC LYMPHADENOPATHY in the GASTROHEPATIC LIGAMENT.
5. SEVERE METASTATIC RETROPERITONEAL LYMPHADENOPATHY.
6. MULTIFOCAL PULMONARY METASTATIC DISEASE.
7. Moderate colonic distention most suggestive of an adynamic ileus.
8. Minimal ascites
Shoulder xray
IMPRESSION:
No evidence acute fracture or dislocation.
Mild degenerative changes of the acromioclavicular and glenohumeral joints.
Was seen and examined on the day of discharge which was 03/26. No new complaints. No acute ovenright events
NAD
Scleral Anicteric
MMM
No JVD
Right anterior chest wall port noted
CTABL
RRR, S1/S2
Soft, NT, ND, BS+
Warm, Dry
AAOx3
More than 30 minutes spent in discharge including
Final examination of the patient
Summarizing hospital stay
Instructions for continuing care to all relevant caregivers
Preparation of discharge records, prescriptions, and referral forms
Total time spent (in minutes): 33mins
Discharge Plan
-
Patient Disposition: Home (Routine Discharge)
Discharge Diagnosis/Procedures: Hyponatremia
Adynamic ileus
Cancer related pain
Leukocytosis
Condition: Good
Diet: As tolerated
Activity: As tolerated
Blood Work: BMP with PCP in Monday the
Activity Restrictions/Additional Instructions:
Presented with abdominal pain nausea and shoulder and back pain. CT abdomen pelvis demonstrated concerns for adynamic ileus. Was started on IV fluids along with bowel regimen. Evaluated by GI as there was also complaints of upper GI discomfort
and has been recently taking NSAIDs. GI was planning to do an upper endoscopy however due to hyponatremia this was pushed back. Sodium was as low as 123 evaluated by nephrology which recommended Samsca which helped to improve sodium to 130.
Nephrology further recommended to discharge home with lasix 10mg daily and salt tabs with BMP bloodwork on Monday the 31 of March. The back.shoulder pain was treated with iv analgesics and oral analggesics with improvement. Will plan to dc home
with percocet 2tabs [id number] x3days and then will need to continue to follow up with pcp/oncologist for refills.
Should be noted, discussed case with primary oncologist Dr. Eliseo Medellin at [facility] March 26, 2025 via my cell phone at 813 in the morning. Reviewed the case with him including increasing white count and pain. Suspect likely related to
cancer that is actively growing. Will likely require outpatient PET scan for the pain. If nontoxic-appearing, afebrile and if cleared for discharge, follow-up up as an outpatient.
CTAP
IMPRESSION:
1. LARGE 4.5 cm INTRAHEPATIC BILE DUCT CANCER in the left lobe of the liver invading the inferior vena cava and occluding the left portal vein.
2. Severe atrophy of the left lobe of the liver with intrahepatic bile duct obstruction.
3. Small metastases in the right lobe of the liver.
4. SEVERE METASTATIC LYMPHADENOPATHY in the GASTROHEPATIC LIGAMENT.
5. SEVERE METASTATIC RETROPERITONEAL LYMPHADENOPATHY.
6. MULTIFOCAL PULMONARY METASTATIC DISEASE.
7. Moderate colonic distention most suggestive of an adynamic ileus.
8. Minimal ascites
Shoulder xray
IMPRESSION:
No evidence acute fracture or dislocation.
Mild degenerative changes of the acromioclavicular and glenohumeral joints.
Referrals:
Joseph Culp MD [Active, Gastroenterology] - in three to four weeks
Ce Waddell DO [Family Provider, Family Practice]
Eliseo Medellin MD [Non-Admitting Privileges, Hematology / Oncology] - in two to three weeks
Prescriptions:
New
docusate sodium 100 mg Capsule
100 mg PO BID Qty: 60 0RF
polyethylene glycol 3350 17 gram Powder In Packet
17 g PO BID Qty: 60 0RF
sennosides [Becky-madeleine] 8.6 mg Tablet
17.2 mg PO HS Qty: 30 0RF
oxycodone-acetaminophen 5-325 mg Tablet
2 tab PO Q4HPRN PRN (Reason: moderate - severe pain) Qty: 36 0RF
tramadol 50 mg Tablet
25 mg PO Q6HPRN PRN (Reason: moderate pain) Qty: 12 0RF
sodium chloride 1,000 mg Tablet,Soluble
500 mg PO DAILY Qty: 30 0RF
furosemide 20 mg Tablet
10 mg PO DAILY Qty: 30 0RF
Continued
omeprazole 40 mg capsule,delayed release(DR/EC)
40 mg PO DAILY
levothyroxine 25 mcg tablet
25 mcg PO DAILY
insulin aspart U-100 100 unit/mL (3 mL) insulin pen
12 unit SC AC
Rx Instructions:
12 breakfast, 14 lunch, 15 dinner
insulin glargine [Lantus Solostar U-100 Insulin] 100 unit/mL (3 mL) insulin pen
18 unit SC HS
prednisolone-moxifloxacin HCl drops
1 % LEFT EYE TID
Discharge Orders:
Discharge Patient (As Directed); Ordered 03/26/25
Ordered By: Wilfred Kline
Discharge Date and Time
Print Language: [place]
[2025-03-26] MEDS: ULTRAM 50 MG PO (11:50)
[2025-03-26] MEDS: SODIUM CHLORIDE 0.5 GRAM PO (11:50)
[2025-03-26] MEDS: LASIX 10 MG PO (11:53)
[2025-03-26 11:58] LABS: Glucose - Point of Care 181 mg/dl (70-99)
[2025-03-26] MEDS: NOVOLOG FLEXPEN-MODERATE RESISTANCE 1 UNITS SC (12:00)
--- NOTE | 2025-03-26 12:14 | CM ---
Patient seen at bedside
discharge today
IMM explained & signed. In chart
PLAN: Home, no needs
to transport
--- NOTE | 2025-03-26 12:40 | W.PN.GI.CBS2 ---
Today's Communication / Plan
-
bowel regimen, pain control, gi signing off
Assessment / Plan
-
69-year-old female with metastatic cholangiocarcinoma presenting with abdominal pain, back pain, constipation.Hospitalist discussed with oncologist who agreed likely related to her cancer. The pain seems to be moving throughout her stomach as well
as back and neck pain which makes ulcer less likely. There is no evidence of bleeding. Suspect this is all likely related to cancer. Differential for abdominal pain also includes constipation. We will continue her PPI in case there is any sort of
peptic ulcer disease- ok to go to daily. Continue MiraLAX twice a day. I discussed with her son at bedside. All questions answered.
GI will sign off pls call with ?S or issues or changes in clinical status.
Subjective
Subjective
Date of Service: March 26, 2025
ongoing pain but improving with percocet
Objective
Data Reviewed
Laboratory Data:
Laboratory Results
03/26/25 05:50
03/26/25 05:50
Laboratory Results
Total Bilirubin 0.6 mg/dl (0.2-1.3) 03/23/25 05:50
AST 61 U/L (14-36) H 03/23/25 05:50
ALT 17 U/L (0-35) 03/23/25 05:50
Alkaline Phosphatase 120 U/L (38-126) 03/23/25 05:50
Lipase 21 U/L (23-300) L 03/22/25 23:01
Vital Signs and I&O:
Vital Signs
Temp Pulse Resp BP Pulse Ox
99.0 F 97 18 124/55 98
03/26/25 07:29 03/26/25 07:29 03/26/25 07:29 03/26/25 11:53 03/26/25 07:29
I&O
03/25/25 03/26/25 03/27/25
06:59 06:59 06:59
Intake Total 1780 / 1780 540 / 540
Output Total 2480 / 2480 3850 / 3850
Balance -700 / -700 -3310 / -3310
Physical Exam
Physical Exam
GI: Non Distended and Non Tender
== END 2025-03-26 12:53 | disposition home or self-care (01) | DRG 435 ==
LOC: 2 SOUTH 08:09
PROVIDERS: Student in an Organized Health Care Education/Training Program; ADMITTING PHYSICIAN Hospitalist; ATTENDING PHYSICIAN Hospitalist; CONSULT PHYSICIAN Internal Medicine; CONSULT PHYSICIAN Specialist; EMERGENCY PHYSICIAN Emergency Medicine; FAMILY PHYSICIAN Family Medicine
DX: C22.1 Intrahepatic bile duct carcinoma (principal); K83.1 Obstruction of bile duct; C78.00 Secondary malignant neoplasm of unspecified lung; K56.0 Paralytic ileus; E87.1 Hypo-osmolality and hyponatremia; D63.8 Anemia in other chronic diseases classified elsewhere; E10.36 Type 1 diabetes mellitus with diabetic cataract; Z79.4 Long term (current) use of insulin; E03.9 Hypothyroidism, unspecified; G89.3 Neoplasm related pain (acute) (chronic)
CPT/HCPCS: 73030; 74177; 80048; 80053; 80076; 82533; 82570; 82962; 83690; 83935; 84156; 84300; 84484; 85025; 85027; 87324; 87449; 93005; 96374; 96375; 96376; 99285; Q9967